=== PATIENT | female | born 1995 | race Hispanic/Latino ===

== ENCOUNTER 2018-05-10 10:27 | Emergency (ER) | payer SELFPAY ==
[2018-05-10] MEDS ORDERED: ACETAMINOPHEN 325 MG TAB ONE (10:38)
[2018-05-10 10:49] LABS: APPEARANCE,URINE Clear (CLEAR); BILIRUBIN,URINE Negative (NEGATIVE); COLOR,URINE Yellow (YELLOW); GLUCOSE, URINE (UA) Negative (NEGATIVE); KETONES,URINE Trace mg/dL (NEGATIVE); LEUKOCYTE ESTERASE ,URINE Small (NEGATIVE); NITRATE,URINE Negative (NEGATIVE); OCCULT BLOOD,URINE Negative (NEGATIVE); PROTEIN,URINE Negative (NEGATIVE)
[2018-05-10] MEDS ORDERED: ONDANSETRON ODT 4 MG TAB ONE (10:53)
[2018-05-10] MEDS ORDERED: HYOSCYAMINE SULFATE 0.125 MG TAB.SUBL SL ONE (10:53)
[2018-05-10 10:58] LABS: HCG,QUAL RESULT NEGATIVE (NEGATIVE)
[2018-05-10 11:11] LABS: BACTERIA,URINE Rare /HPF (None Seen); MUCUS,URINE Moderate LPF (None Seen); SQUAMOUS EPITHELIAL CELL,UR Rare /HPF (0-2)
== END 2018-05-10 12:01 | disposition home or self-care (01) ==
LOC: EDH 10:27
DX: K52.9 Noninfective gastroenteritis and colitis, unspecified (principal); N39.0 Urinary tract infection, site not specified
CPT/HCPCS: 81001; 81025

== ENCOUNTER 2020-04-04 22:22 | Emergency (ER) | payer OTHER ==
[2020-04-04 23:03] LABS: RAPID GROUP A STREP NEGATIVE (NEGATIVE)
[2020-04-04] MEDS ORDERED: CEFTRIAXONE SODIUM 500 MG VIAL ONE (23:45)
[2020-04-04] MEDS ORDERED: AZITHROMYCIN 250 MG TABLET PO ONE (23:46)
[2020-04-04] MEDS ORDERED: ONDANSETRON ODT 4 MG TAB ONE (23:47)
[2020-04-04] MEDS ORDERED: LIDOCAINE HCL-MPF 1% 2ML VIAL ONE (23:47)
== END 2020-04-05 00:35 | disposition home or self-care (01) ==
LOC: EDH 22:22
DX: J02.9 Acute pharyngitis, unspecified (principal)
CPT/HCPCS: 81025; 87486; 87797; 87804 ×2; 87880; 96372; 99283; J0696; J3490

== ENCOUNTER 2022-09-02 17:47 | Emergency (ER) | payer OTHER ==
[~2022-09-02] VITALS: Ht 157.5 cm; Wt 65.8 kg
[2022-09-02 18:27] LABS: BASOPHILS % (AUTO) 0.4 % (0.0-5.0); HEMATOCRIT 45.9 % (36-48); LYMPHOCYTES % (AUTO) 6.4 % (21.0-51.0); MEAN CORPUSCULAR HEMOGLOBIN 27.9 pg (27.0-33.0); MEAN CORPUSCULAR HGB CONC 33.8 g/dL (32.0-36.0); MEAN CORPUSCULAR VOLUME 82.7 fL (79-99); MONOCYTES % (AUTO) 3.9 % (3.0-13.0); NEUTROPHILS % (AUTO) 88.9 % (40.0-77.0); PLATELET COUNT (AUTO) 321 K/uL (130-400); RED BLOOD CELL COUNT(AUTO) 5.55 MIL/uL (4.00-5.50); RED CELL DISTRIBUTION WIDTH 12.5 % (11.0-15.5); WHITE BLOOD COUNT (AUTO) 7.5 K/uL (4.8-10.8)
[2022-09-02 18:34] LABS: CREATININE 0.9 mg/dL (0.5-1.5); POTASSIUM 3.3 mmol/L (3.5-5.1)
[2022-09-02 18:39] LABS: ALBUMIN 4.4 g/dL (3.5-5.0); TOTAL PROTEIN, SERUM 9.4 g/dL (6.0-8.3)
[2022-09-02] MEDS ORDERED: POTASSIUM BICARB/CIT AC 25 MEQ TABLET.EFF PO STA (18:49)
[2022-09-02] MEDS ORDERED: OSEL75 PO (19:04)
[2022-09-02 19:18] LABS: APPEARANCE,URINE CLEAR (CLEAR); BILIRUBIN,URINE NEGATIVE (NEGATIVE); COLOR,URINE YELLOW (YELLOW); GLUCOSE, URINE (UA) 200 mg/dL (NEGATIVE); KETONES,URINE >=80 mg/dL (NEGATIVE); LEUKOCYTE ESTERASE ,URINE NEGATIVE Leu/uL (NEGATIVE); NITRATE,URINE NEGATIVE (NEGATIVE); OCCULT BLOOD,URINE NEGATIVE (NEGATIVE); PH,URINE 5.5 (5.0-8.0); PROTEIN,URINE 50 mg/dL (NEGATIVE); UROBILINOGEN,URINE 0.2 mg/dL (0.2-1.0)
[2022-09-02 19:24] VITALS: BP 117/89
[2022-09-02 19:27] LABS: HCG,QUALITATIVE URINE NEGATIVE (NEGATIVE)
[2022-09-02 19:30] LABS: BACTERIA,URINE RARE /HPF (None Seen); MUCUS,URINE MOD LPF (None Seen); SQUAMOUS EPITHELIAL CELL,UR FEW /HPF (0-2)
== END 2022-09-02 19:20 | disposition home or self-care (01) ==
LOC: EDH 17:47
DX: J10.1 Influenza due to other identified influenza virus with other respiratory manifestations (principal); Z20.822 Contact with and (suspected) exposure to COVID-19
CPT/HCPCS: 99283; 87635; 80053; 85025; 87804 ×2; 81001; 81025; 36415; C9803